=== PATIENT | female | born 1950 | race Caucasian/White ===

== ENCOUNTER 2017-07-18 10:16 | Outpatient (CLI) | payer MEDICARE, OTHER ==
--- NOTE | 2017-07-27 16:28 | Mammography Report ---
DIGITAL SCREENING LEFT MAMMOGRAM: 07/18/2017 CLINICAL INDICATION: A 67-year-old with a personal history of right breast cancer, status post mastectomy, history of left implant, for screening. TECHNIQUE: Left CC, MLO, implant-displaced views were obtained. COMPARISON: Films from [place], [place] dated 04/08/2016, 04/02/2015, 03/20/2014, 03/09/2013, 02/10/2012, 02/03/2011, 01/22/2010, FINDINGS: The left breast again demonstrates heterogeneously dense fibroglandular parenchyma. The left subpectoral silicone implant is stable. No suspicious masses, clustered microcalcifications, or regions of architectural distortion are identified. IMPRESSION: BENIGN FINDINGS. RECOMMENDATION: ROUTINE ANNUAL SCREENING UNLESS OTHERWISE CLINICALLY INDICATED. BIRADS CATEGORY 2-BENIGN FINDINGS. STANDARD QUALIFYING STATEMENTS: 1. This examination was reviewed with the aid of Computer-Aided Detection (CAD). 2. A negative or benign imaging report should not delay biopsy if clinically suspicious findings are present. Consider surgical consultation if warranted. More than 5% of cancers are not identified by imaging. 3. Dense breasts may obscure an underlying neoplasm. TD: 07/27/2017 16:27
== END 2017-07-18 10:17 | disposition home or self-care (01) ==
LOC: DI.S 10:16
PROVIDERS: ATTEND Physician Assistant
DX: Z12.31 Encounter for screening mammogram for malignant neoplasm of breast (principal); Z85.3 Personal history of malignant neoplasm of breast; Z90.11 Acquired absence of right breast and nipple; Z98.82 Breast implant status

== ENCOUNTER 2017-12-26 11:50 | Outpatient (CLI) | payer MEDICARE, OTHER ==
[2017-12-26 19:10] LABS: HB2 TOTAL 13.8 g/dL; HEMOGLOBIN A1C 0.48 g/dL; HEMOGLOBIN A1C % 5.3 % (4.6-6.2)
[2017-12-26 19:11] LABS: BASOPHILS # (AUTO) 0.1 10^3/uL (0.0-0.1); BASOPHILS % (AUTO) 1.1 %; EOSINOPHILS # (AUTO) 0.1 10^3/uL (0.0-0.7); EOSINOPHILS % (AUTO) 1.1 %; HGB - HEMOGLOBIN 12.9 g/dL (12.0-16.0); LYMPHOCYTES # (AUTO) 2.4 10^3/uL (1.5-3.5); LYMPHOCYTES % (AUTO) 34.9 %; MEAN CORPUSCULAR HEMOGLOBIN 33.2 pg (27.0-31.0); MEAN CORPUSCULAR HGB CONC 33.9 g/dL (32.0-36.0); MEAN PLATELET VOLUME 8.1 fL (7.9-10.8); MONOCYTES # (AUTO) 0.3 10^3/uL (0.0-1.0); MONOCYTES % (AUTO) 4.9 %; NEUTROPHILS # (AUTO) 3.9 10^3/uL (1.5-6.6); PLT - PLATELET COUNT 264 10^3/uL (130-450); RED BLOOD COUNT 3.89 10^6/uL (4.20-5.40); RED CELL DISTRIBUTION WIDTH 13.6 % (12.0-15.0); WHITE BLOOD COUNT 6.8 x10^3/uL (4.8-10.8)
[2017-12-26 19:40] LABS: ALBUMIN 4.2 g/dL (3.2-5.5); ALBUMIN/GLOBULIN RATIO 1.1 (1.0-2.2); ALKALINE PHOSPHATASE 41 IU/L (42-121); ALT ALANINE AMINOTRANSFERASE 96 IU/L (10-60); AST ASPARTATE AMINOTRANSFERASE 136 IU/L (10-42); BILIRUBIN,TOTAL 0.9 mg/dL (0.2-1.0); BUN - BLOOD UREA NITROGEN 15 mg/dL (6-20); CALCIUM 9.4 mg/dL (8.5-10.3); CARBON DIOXIDE - CO2 27 mmol/L (21-32); CHLORIDE 102 mmol/L (101-111); CHOL/HDL RATIO 3.3 (<4.4); CHOLESTEROL 293 mg/dL; CREATININE 1.2 mg/dL (0.4-1.0); GFR - MDRD 45 (>89); GLUCOSE 76 mg/dL (70-100); HDL CHOLESTEROL 88 mg/dL; LDL CHOLESTEROL,CALCULATED 176 mg/dL; MAGNESIUM 2.5 mg/dL (1.7-2.8); SODIUM 136 mmol/L (135-145); TOTAL PROTEIN 8.2 g/dL (6.7-8.2); VLDL CHOLESTEROL 29 mg/dL
[2017-12-27 12:51] LABS: HEPATITIS C ANTIBODY NON-REACTIVE (NON-REACTIVE)
== END 2017-12-26 11:51 | disposition home or self-care (01) ==
LOC: LAB.F 11:50
PROVIDERS: ATTEND Family Medicine
DX: Z13.220 Encounter for screening for lipoid disorders (principal); Z13.0 Encounter for screening for diseases of the blood and blood-forming organs and certain disorders involving the immune mechanism; Z13.1 Encounter for screening for diabetes mellitus; R60.9 Edema, unspecified
CPT/HCPCS: 36415; 80053; 80061; 83036; 83721; 83735; 83880; 84443; 85025; 86803

== ENCOUNTER 2017-12-28 09:16 | Outpatient (CLI) | payer MEDICARE, OTHER ==
[2017-12-28 18:06] LABS: GAMMA GLUTAMYL TRANSPEPTIDASE 14 IU/L (8-38)
[2017-12-28 18:07] LABS: CRP - C-REACTIVE PROTEIN < 1.0 mg/dL (0-1.0)
[2017-12-28 18:14] LABS: FREE T4 (FREE THYROXINE) < 0.25 ng/dL (0.58-1.64)
[2017-12-28 18:43] LABS: T4 (THYROXINE) < 0.50 ug/dL (6.09-12.23); THYROID STIMULATING HORMONE 198.37 uIU/mL (0.34-5.60)
[2017-12-29 13:18] LABS: HEPATITIS C ANTIBODY NON-REACTIVE (NON-REACTIVE)
[2017-12-29 16:18] LABS: HEPATITIS B SURFACE ANTIGEN NON-REACTIVE (NON-REACTIVE)
== END 2017-12-28 09:17 | disposition home or self-care (01) ==
LOC: LAB.F 09:16
PROVIDERS: ATTEND Nurse Practitioner Family
DX: Z13.29 Encounter for screening for other suspected endocrine disorder (principal); Z13.1 Encounter for screening for diabetes mellitus; Z11.59 Encounter for screening for other viral diseases; R60.9 Edema, unspecified; L03.119 Cellulitis of unspecified part of limb; R53.83 Other fatigue
CPT/HCPCS: 36415; 82977; 84436; 84439; 84443; 84481; 85651; 86140; 86317; 86803; 87340

== ENCOUNTER 2018-01-11 11:10 | Outpatient (CLI) | payer MEDICARE, OTHER ==
--- NOTE | 2018-01-11 16:09 | Ultrasound Report ---
Procedure Date: 01/11/2018 Accession Number: [id number] / [id number] Procedure: US - Abdomen Complete CPT Code: FULL RESULT: EXAM: ABDOMEN ULTRASOUND EXAM DATE: 01/11/2018 02:18 PM. CLINICAL HISTORY: Elevated LFTs. History of breast CA. COMPARISON: 01/11/2018. TECHNIQUE: Real-time scanning was performed with static images obtained. FINDINGS: Liver: Normal in size and echotexture. Liver measures at least 16 cm. Main portal vein flow: Hepatopetal. A 7.4 x 6.5 x 5.5 mm echogenic focus in the left lobe of the liver is felt to most likely represent hemangioma. Gallbladder: Normal. No stones, wall thickening, or sonographic Bledsoe's sign. Biliary System: Common bile duct measures 3 mm. No intrahepatic or extrahepatic ductal dilatation. Pancreas: Visualized portion is unremarkable. Kidneys: Right: 9.8 cm longitudinally. Normal. No contour-deforming mass, stones, or hydronephrosis. Left: 9.7 cm longitudinally. Normal. No contour-deforming mass, stones, or hydronephrosis. Spleen: 8.7 cm. Normal in size and echotexture. Aorta and Inferior Vena Cava: Unremarkable. Other: None. IMPRESSION: Echogenic liver lesion with an overall benign appearance suggestive of but not diagnostic for hemangioma. Please note that metastatic cancer to the liver is classically identified as hypoechoic lesions and the above singular lesion is unlikely to represent metastatic breast cancer. RADIA
== END 2018-01-11 11:11 | disposition home or self-care (01) ==
LOC: DI 11:10
PROVIDERS: ATTEND Nurse Practitioner Family
DX: K76.9 Liver disease, unspecified (principal); Z85.3 Personal history of malignant neoplasm of breast
CPT/HCPCS: 76700

== ENCOUNTER 2018-05-04 13:02 | Outpatient (CLI) | payer MEDICARE, OTHER ==
--- NOTE | 2018-05-05 10:31 | Ultrasound Report ---
Reason: NONTOXIC SINGLE THYROID NODULE Procedure Date: 05/04/2018 Accession Number: [id number] / [id number] Procedure: US - Head or Neck Soft Tissue CPT Code: FULL RESULT: EXAM: THYROID ULTRASOUND EXAM DATE: 05/04/2018 01:55 PM. CLINICAL HISTORY: Nontoxic single thyroid nodule. COMPARISON: None. TECHNIQUE: Real time sonographic imaging of the thyroid was performed by the nutrition intern. Multiple direct customer service representative static images were saved for review. FINDINGS: THYROID GLAND: Right Lobe: 5.5 x 2.3 x 2.5 cm, volume 16.4 cc. The right lobe of the thyroid demonstrates markedly abnormal margins and has been replaced by a heterogeneous hypoechoic nodule inseparable from background parenchyma. Right Lobe Nodules: See above. Left Lobe: 4.1 x 1.8 x 2.0 cm, volume 7.7 cc. Left lobe of the thyroid parenchyma also demonstrates an irregular margin and lobulated contour and has been replaced and a multinodular fashion not separately measurable from background parenchyma. Left Lobe Nodules: See above. Isthmus: 0.5 cm AP. Isthmic Nodules: None discretely seen. LYMPH NODES: No adenopathy demonstrated in the central or lateral compartment. OTHER: None. IMPRESSION: Markedly abnormal appearing thyroid suggestive of multinodular goiter. If this does not fit the clinical picture and laboratory findings, suggest FNA of both thyroid lobes. Management recommendations are based on 2015 [place] [employer] Management Guidelines for Adult Patients with Thyroid Nodules and Differentiated Thyroid Cancer. RADIA
== END 2018-05-04 13:03 | disposition home or self-care (01) ==
LOC: DI 13:02
PROVIDERS: ATTEND Family Medicine
DX: E04.1 Nontoxic single thyroid nodule (principal)
CPT/HCPCS: 76536

== ENCOUNTER 2018-09-26 14:13 | Outpatient (CLI) | payer MEDICARE ==
--- NOTE | 2018-09-26 15:27 | Mammography Report ---
Reason: ANNUAL Procedure Date: 09/26/2018 Accession Number: [id number] / [id number] Procedure: TERESA - Screening Mammo Left w/Martin CPT Code: FULL RESULT: EXAM: Screening Mammo Left w/Martin DATE: 09/26/2018 2:30 PM CLINICAL HISTORY: Personal history of right breast cancer status post mastectomy with left implant. For routine screening. TECHNIQUE: (L) - Left CC and MLO views as well as implant displaced views were obtained. COMPARISON: 07/18/2017, 04/08/2016, 04/02/2015 and 03/20/2014 PARENCHYMAL PATTERN: (A) - The left breast demonstrates scattered fibroglandular densities bilaterally. FINDINGS: There is no significant interval change. There are no suspicious masses, calcifications, or areas of distortion. Stable appearance of the left breast implant. IMPRESSION: Negative left examination. BI-RADS category 1. RECOMMENDATION: (ANNUAL) - Recommend routine annual left screening mammography. BI-RADS CATEGORY: (1) - Negative. STANDARD QUALIFYING STATEMENTS: 1. This examination was not reviewed with the aid of Computer-Aided Detection (CAD). 2. A negative or benign imaging report should not preclude biopsy if clinically suspicious findings are present. 3. Dense breasts may obscure an underlying neoplasm. 4. This examination was reviewed with the aid of 3D breast imaging (tomosynthesis).
== END 2018-09-26 14:14 | disposition home or self-care (01) ==
LOC: DI 14:13
DX: Z12.31 Encounter for screening mammogram for malignant neoplasm of breast (principal); Z85.3 Personal history of malignant neoplasm of breast; Z98.82 Breast implant status; Z90.11 Acquired absence of right breast and nipple
CPT/HCPCS: 77063

== ENCOUNTER 2018-10-28 13:32 | Outpatient (CLI) | payer MEDICARE ==
--- NOTE | 2018-10-30 00:25 | Ultrasound Report ---
Reason: NONTOXIC MULTINODULAR GOITER Procedure Date: 10/28/2018 Accession Number: [id number] / [id number] Procedure: US - Head or Neck Soft Tissue CPT Code: FULL RESULT: EXAM: THYROID ULTRASOUND EXAM DATE: 10/28/2018 02:11 PM. CLINICAL HISTORY: Nontoxic multinodular goiter. COMPARISON: HEAD OR NECK SOFT TISSUE 05/04/2018 1:39 PM. TECHNIQUE: Real-time sonographic imaging of the thyroid was performed by the spinning lathe operator. Multiple phone representative static images were saved for review. FINDINGS: THYROID GLAND: Right Lobe: 4.9 x 2.4 x 2.8 cm, volume 16.8 cc. Diffusely heterogeneous echotexture. Right Lobe Nodules: Heterogeneous spongiform inferior nodules, 0.9 x 0.5 x 0.7 cm just superior to 1.2 x 1.3 x 1.3 cm. Left Lobe: 3.8 x 2.2 x 2.4 cm, volume 10.4 cc. Normal background echotexture. Left Lobe Nodules: Superior 0.9 x 0.5 x 0.6 cm nodule. Isthmus: 0.5 cm AP. Isthmic Nodules: None. LYMPH NODES: Largest lymph node on the right 2.1 x 0.5 x 1.0 cm, on the left 1.6 x 0.6 x 1.0 cm. OTHER: None. IMPRESSION: Heterogeneous multinodular goiter. No large or suspicious nodules meeting size criteria for FNA. Management recommendations are based on 2015 [place] [employer] Management Guidelines for Adult Patients with Thyroid Nodules and Differentiated Thyroid Cancer. RADIA
== END 2018-10-28 13:33 | disposition home or self-care (01) ==
LOC: DI 13:32
PROVIDERS: ATTEND Family Medicine
DX: E04.2 Nontoxic multinodular goiter (principal)
CPT/HCPCS: 76536

== ENCOUNTER 2020-01-18 09:38 | Outpatient (CLI) | payer MEDICARE ==
--- NOTE | 2020-01-21 09:21 | Mammography Report ---
UNILATERAL LEFT DIGITAL SCREENING MAMMOGRAM 3D/2D: 01/18/2020 CLINICAL: Routine screening. Personal history of right breast cancer. Comparison is made to exams dated: 09/26/2018 mammogram, 07/18/2017 mammogram - [facility], and 04/08/2016 mammogram - [facility]. There are scattered fibroglandul ar elements in left breast. Left breast implant is present. No significant masses, calcifications, or other findings are seen in the breast. There has been no significant interval change. IMPRESSION: NEGATIVE There is no mammographic evidence of malignancy. A 1 year screening mammogram is recommended. This exam was interpreted at Station ID: [id number]. NOTE: For mammograms, a report in lay terms will be sent to the patient. Approximately 15% of breast malignancies will not be visualized mammographically. In the management of a palpable breast mass, a negative mammogram must not discourage biopsy of a clinically suspicious lesion. Electronically Signed By: Miriam [email or web address]/sheela:01/18/2020 12:10:30 ACR BI-RADS Category 1: Negative 3341F PARENCHYMAL PATTERN: (A) - The breast(s) demonstrate(s) scattered fibroglandular densities. BI-RADS CATEGORY: (1) - 1 RECOMMENDATION: (ANNUAL) - Recommend routine annual screening mammography. [id number] 1 year screening LATERALITY: (B)
== END 2020-01-18 09:39 | disposition home or self-care (01) ==
LOC: DI 09:38
PROVIDERS: ATTEND Family Medicine
DX: Z12.31 Encounter for screening mammogram for malignant neoplasm of breast (principal); Z85.3 Personal history of malignant neoplasm of breast; Z98.82 Breast implant status
CPT/HCPCS: 77063

== ENCOUNTER 2021-02-16 13:01 | Outpatient (CLI) | payer MEDICARE ==
--- NOTE | 2021-02-24 11:58 | Mammography Report ---
UNILATERAL LEFT DIGITAL SCREENING MAMMOGRAM 3D/2D: 02/16/2021 CLINICAL: Routine screening. Personal history of right breast cancer. Comparison is made to exams dated: 01/18/2020 mammogram, 09/26/2018 mammogram, 07/18/2017 mammogram - [facility], 04/08/2016 mammogram, 04/12/2015 mammogram, and 03/20/2014 mammogram - [facility]. There are scattered fibroglandular elements in left breast. No significant masses, calcifications, or other findings are seen in the breast. There has been no significant interval change. IMPRESSION: NEGATIVE There is no mammographic evidence of malignancy. A 1 year screening mammogram is recommended. This exam was interpreted at Station ID: [id number]. NOTE: For mammograms, a report in lay terms will be sent to the patient. Approximately 15% of breast malignancies will not be visualized mammographically. In the management of a palpable breast mass, a negative mammogram must not discourage biopsy of a clinically suspicious lesion. Electronically Signed By: Terrance Kelly M.D., jr/sheela:02/17/2021 08:05:16 ACR BI-RADS Category 1: Negative 3341F PARENCHYMAL PATTERN: (A) - The breast(s) demonstrate(s) scattered fibroglandular densities. BI-RADS CATEGORY: (1) - 1 RECOMMENDATION: (ANNUAL) - Recommend routine annual screening mammography. [id number] 1 year screening LATERALITY: (B)
== END 2021-02-16 13:02 | disposition home or self-care (01) ==
LOC: DI 13:01
DX: Z12.31 Encounter for screening mammogram for malignant neoplasm of breast (principal); Z85.3 Personal history of malignant neoplasm of breast